=== PATIENT | male | born 1965 | race Caucasian/White ===

== ENCOUNTER → 2017-05-18 | Outpatient (CLI) | payer MEDICARE, OTHER ==
--- NOTE | 2017-05-19 09:30 | XR ---
EXAMINATION TYPE: XR shoulder complete LT DATE OF EXAM: 05/18/2017 CLINICAL HISTORY: Left shoulder pain after injury. TECHNIQUE: Three views of the left shoulder are obtained. COMPARISON: None. FINDINGS: There is no acute fracture/dislocation evident in the left shoulder. Well-corticated osse ous fragment is seen at the acromioclavicular joint favored to represent sequela of old injury or art hropathy, however small os acromiale is also possible. Mild acromio clavicular arthropathy is demonst rated as marginal osteophytes, capsular hypertrophy and subchondral sclerosis. Bony irregularity is s een at the greater tuberosity from enthesopathy. Calcifications of the distal insertional aspect of t he rotator cuff are faint and may relate to calcific tendinosis. The visualized ribs are intact and u nremarkable. IMPRESSION: 1. There is no acute fracture or dislocation in the left shoulder. 2. Well-corticated osseous fragment at the distal clavicle favored to represent sequela of arthropath y or prior injury of however small os acromiale is also possible. 3. Mild acromioclavicular arthropathy and and enthesopathy at the rotator cuff insertion. Additionall y faint calcifications at the distal insertion of the rotator cuff may relate to calcific tendinosis.
== END ==
LOC: RADXRMAIN 15:13
PROVIDERS: ATTEND Family Medicine
DX: M19.012 Primary osteoarthritis, left shoulder (principal)

== ENCOUNTER → 2017-07-05 | Outpatient (CLI) | payer MEDICARE, OTHER ==
--- NOTE | 2017-07-05 14:49 | XR ---
EXAMINATION TYPE: XR cervical spine comp DATE OF EXAM: 07/05/2017 COMPARISON: NONE HISTORY: 52-year-old male with neck pain after shoveling snow TECHNIQUE: 5 views FINDINGS: Uncovertebral joint and facet arthropathy especially mid to lower cervical spine. There is moderate d iscussion plate degenerative change variably, particularly at C6-C7 with there is posterior disc ossi fied complex also present. Suggestion of a trace grade 1 retrolisthesis at C4-C5. Otherwise, preserved alignment of the cervical spine. On the left, there is mild to moderate bony spondylotic neural foraminal narrowing at C4-C5 and C6-C7 . On the right, there is more moderate neural foraminal narrowing at C4-C5 and mild at C6-C7. Normal odontoid view. IMPRESSION: 1. Moderate spondylotic change. There is grade 1 retrolisthesis at C4-C5 likely on a degenerative bas is. 2. Variable mild to moderate neuroforaminal stenoses as outlined above, particularly at C4-C5 and C6- C7.
== END | disposition home or self-care (01) ==
LOC: RADXRMAIN 14:10
PROVIDERS: ATTEND Family Medicine
DX: M99.71 Connective tissue and disc stenosis of intervertebral foramina of cervical region (principal); M43.12 Spondylolisthesis, cervical region; M47.812 Spondylosis without myelopathy or radiculopathy, cervical region
CPT/HCPCS: 72050

== ENCOUNTER 2017-09-05 05:07 | Emergency (ER) | payer MEDICARE, OTHER ==
[2017-09-05 05:14] VITALS: BP 137/80; PULSE 67; RESP 16; TEMP 97.4
[2017-09-05] MEDS ORDERED: OXYMETAZOLINE 0.05% NASL SPRAY 1 SPRAY BOTTLE NASAL STA (05:30)
--- NOTE | 2017-09-05 05:32 | ED ---
URI HPI - General Chief Complaint: Upper Respiratory Infection Stated Complaint: cough Time Seen by Provider: 09/05/17 05:16 Source: patient Mode of arrival: ambulatory Limitations: no limitations - History of Present Illness Initial Comments: This patient is a 52-year-old man who presents to be a value for cough and congestion. The patient states that "I have a bad cold." He states the symptoms started Sunday night. He is having a little bit of nonproductive cough and he states that the main thing was that over the course of tonight he was not able to breathe well because of nasal congestion. Things seem to be worse when he is trying to lie down. He denies any chest symptoms, including no chest congestion, no shortness of breath. He has not noted fevers chills. MD Complaint: cough, nasal congestion Onset/Timin -: days(s) Severity: moderate Consistency: constant Improves With: nothing Worsens With: nothing Context: sick contacts Associated Symptoms: nasal congestion, cough Treatments Prior to Arrival: none - Related Data Previous Rx's Medication Instructions Recorded Pseudoephedrine HCl 120 mg PO Q12H PRN #20 tablet.er 09/05/17 [Pseudoephedrine ER] Allergies Allergy/AdvReac Type Severity Reaction Status Date / Time No Known Allergies Allergy Verified 09/05/17 05:14 Review of Systems ROS Statement: Those systems with pertinent positive or pertinent negative responses have been documented in the HPI. ROS Other: All systems not noted in ROS Statement are negative. Constitutional: Denies: fever, chills Eyes: Denies: eye pain ENT: Reports: congestion. Denies: ear pain, throat pain, hearing loss Respiratory: Reports: cough. Denies: dyspnea, wheezes Cardiovascular: Denies: chest pain Neurological: Denies: headache Past Medical History Past Medical History: Hypertension Additional Past Medical History / Comment(s): rotator cuff injury History of Any Multi-Drug Resistant Organisms: None Reported Past Surgical History: Orthopedic Surgery Past Psychological History: No Psychological Hx Reported Smoking Status: Never smoker Past Alcohol Use History: None Reported Past Drug Use History: Marijuana General Exam Limitations: no limitations General appearance: alert, in no apparent distress Head exam: Present: atraumatic, normocephalic Eye exam: Present: normal appearance, PERRL, EOMI. Absent: scleral icterus, conjunctival injection ENT exam: Present: mucous membranes moist, TM's normal bilaterally, normal external ear exam, other (Clear nasal discharge bilaterally.) Neck exam: Present: full ROM. Absent: tenderness Respiratory exam: Present: normal lung sounds bilaterally. Absent: respiratory distress, wheezes, rales, rhonchi, stridor Cardiovascular Exam: Present: regular rate, normal rhythm, normal heart sounds. Absent: systolic murmur, diastolic murmur, rubs, gallop Course Vital Signs 09/05/17 05:10 Temperature 97.4 F L Pulse Rate 67 Respiratory 16 Rate Blood Pressure 137/80 O2 Sat by Pulse 98 Oximetry Disposition Clinical Impression: Upper respiratory infection Disposition: HOME SELF-CARE Condition: Good Instructions: Upper Respiratory Infection (ED) Prescriptions: Pseudoephedrine HCl [Pseudoephedrine ER] 120 mg PO Q12H PRN #20 tablet.er PRN Reason: Congestion Referrals: Salvatore Wright DO [Primary Care Provider] - 1-2 days
== END 2017-09-05 05:42 | disposition home or self-care (01) ==
LOC: EC 05:07
DX: J06.9 Acute upper respiratory infection, unspecified (principal)
CPT/HCPCS: 99283

== ENCOUNTER 2019-09-29 13:22 | Emergency (ER) | payer MEDICARE, OTHER ==
[2019-09-29] MEDS ORDERED: ACET/COD 300 MG/30 MG STARTER PACK 6 TAB BTL PO STA (13:52)
--- NOTE | 2019-09-29 13:53 | ED ---
General Adult HPI - General Chief complaint: Extremity Injury, Upper Stated complaint: lt arm pain Time Seen by Provider: 09/29/19 13:33 Source: patient Mode of arrival: ambulatory Limitations: no limitations - History of Present Illness Initial comments: Dictation was produced using [employer] dictation software. please excuse any grammatical, word or spelling errors. Chief Complaint: 54-year-old male with past medical history of bilateral hand surgeries on disability presents with left elbow pain. History of Present Illness: 24-year-old male presents with left elbow pain starting around lunchtime today. Patient states that yesterday he is working on his motorcycle. States that he feels pain on his left olecranon process. Denie s any trauma or prolonged pressure on the elbow joint. Denies any fever, chills or night sweats. Patient states the pain is worse when he bends at the elbow the symptoms are relieved with elbow extension. Patient denies any constitutional symptoms. No history of diabetes. Patient has no other complaints. No radiation of symptoms. No neurologic symptoms in the hand. The ROS documented in this emergency department record has been reviewed and confirmed by me. Those systems with pertinent positive or negative responses have been documented in the HPI. All other systems are other negative and/or noncontributory. PHYSICAL EXAM: General Impression: Alert and oriented x3, not in acute distress HEENT: Normocephalic atraumatic, extra-ocular movements intact, pupils equal and reactive to light bilaterally, mucous membranes moist. Cardiovascular: Heart regular rate and rhythm, S1&S2 audible, no murmurs, rubs or gallops Chest: Lungs clear to auscultation bilaterally, no rhonchi, no wheeze, no rales Abdomen: Bowel sounds present, abdomen soft, non-tender, non-distended, no organomegaly Musculoskeletal: Pulses present and equal in all extremities, no peripheral edema Left upper extremity: Intact normal range of motion to the left shoulder and left wrist. Skin is unremarkable. There is a small 1 x 1 cm fluctuant area over the olecranon process. This site is nonerythematous and not warm. Motor: no focal deficits noted Neurological: CN II-XII grossly intact, no focal motor or sensory deficits noted Skin: Intact with no visualized rashes Psych: Normal affect and mood ED course: 54-year-old male clinical presentation consistent with olecranon bursitis. Vital signs upon arrival are within acceptable limits. Given acuity of symptoms and benign appearance of fluctuant area on the left elbow coca presentation most likely to be septic bursitis. Patient given pressure dressing. Given by mouth analgesia. Patient told to seek medical attention if his symptoms started showing signs of infection including redness, worsening pain and warmth. He understands that should these symptoms arise he should seek medical attention immediately. - Related Data Previous Rx's Medication Instructions Recorded Pseudoephedrine HCl 120 mg PO Q12H PRN #20 tablet.er 09/05/17 [Pseudoephedrine ER] Clindamycin HCl 300 mg PO Q6H 4 Days #20 cap 09/29/19 Allergies Allergy/AdvReac Type Severity Reaction Status Date / Time No Known Allergies Allergy Verified 09/05/17 05:14 Review of Systems ROS Statement: Those systems with pertinent positive or pertinent negative responses have been documented in the HPI. ROS Other: All systems not noted in ROS Statement are negative. Past Medical History Past Medical History: Hypertension Additional Past Medical History / Comment(s): rotator cuff injury History of Any Multi-Drug Resistant Organisms: None Reported Past Surgical History: Orthopedic Surgery Past Psychological History: No Psychological Hx Reported Smoking Status: Never smoker Past Alcohol Use History: None Reported Past Drug Use History: Marijuana General Exam Limitations: no limitations Course Vital Signs 09/29/19 13:27 Temperature 97.9 F Pulse Rate 102 H Respiratory 16 Rate Blood Pressure 146/82 O2 Sat by Pulse 100 Oximetry Disposition Clinical Impression: Bursitis of elbow Disposition: HOME SELF-CARE Condition: Good Additional Instructions: Today you where evaluated for bursitis of the left elbow. At this point there are no signs of infection however he should seek medical attention with signs of worsening pain, left elbow redness, left elbow warmth fever or chills night sweats. Your given a prescription for antibiotics. Please begin taking his antibiotics if there is any concern of infection and seek medical attention immediately. Youre given a prescription that was sent to your listed preferred pharmacy. Prescriptions: Clindamycin HCl 300 mg PO Q6H 4 Days #20 cap Is patient prescribed a controlled substance at d/c from ED?: No Referrals: Salvatore Wright DO [Primary Care Provider] - 1-2 days Time of Disposition: 13:52
[2019-09-29 14:20] VITALS: BP 140/78; PULSE 92; RESP 18; TEMP 98.6
== END 2019-09-29 14:19 | disposition home or self-care (01) ==
LOC: EC 13:22
DX: M70.22 Olecranon bursitis, left elbow (principal); Z98.890 Other specified postprocedural states; Y93.89 Activity, other specified
CPT/HCPCS: 99283

== ENCOUNTER 2020-03-10 14:37 | Emergency (ER) | payer MEDICARE, OTHER ==
[2020-03-10 14:50] VITALS: BP 125/80; PULSE 75; RESP 18; TEMP 97.3
--- NOTE | 2020-03-10 15:11 | ED ---
General Adult HPI - General Chief complaint: ENT Stated complaint: L Jaw Pain Time Seen by Provider: 03/10/20 14:52 Source: patient Mode of arrival: ambulatory Limitations: no limitations - History of Present Illness Initial comments: Dictation was produced using [employer] dictation software. please excuse any grammatical, word or spelling errors. This patient was cared for during a federal and state declared state of emergency secondary to Covid 19 Chief Complaint: 54-year-old male presents with left-sided jaw clicking. History of Present Illness: Patient 54-year-old male today he was eating lunch when he felt some clicking on his left jaw. He called his dentist who offered him not much help. Patient states along with this clicking a reports increased pain. Patient states he is unable to open his mouth all the way. Patient denies any history of jaw problems. The ROS documented in this emergency department record has been reviewed and confirmed by me. Those systems with pertinent positive or negative responses have been documented in the HPI. All other systems are other negative and/or noncontributory. PHYSICAL EXAM: General Impression: Alert and oriented x3, not in acute distress HEENT: Normocephalic atraumatic, extra-ocular movements intact, pupils equal and reactive to light bilaterally, mucous membranes moist, no malocclusion, clicking with opening and closing of the mouth. Cardiovascular: Heart regular rate and rhythm Chest: Able to complete full sentences, no retractions, no tachypnea Abdomen: abdomen soft, non-tender, non-distended, no organomegaly Musculoskeletal: Pulses present and equal in all extremities, no peripheral edema Motor: no focal deficits noted Neurological: CN II-XII grossly intact, no focal motor or sensory deficits noted Skin: Intact with no visualized rashes Psych: Normal affect and mood ED course: 54-year-old male presents with clicking of the left jaw and left jaw pain.. Signs upon arrival are within acceptable limits. Clinical presentation consistent with left TMJ arthritis. Mandibular x-rays are unremarkable. Patient given referral to ENT for outpatient care of TMJ symptoms. Patient told to eat soft diet for the time being and to take [id number] medications for symptoms when necessary. - Related Data Previous Rx's Medication Instructions Recorded Pseudoephedrine HCl 120 mg PO Q12H PRN #20 tablet.er 09/05/17 [Pseudoephedrine ER] Clindamycin HCl 300 mg PO Q6H 4 Days #20 cap 09/29/19 Allergies Allergy/AdvReac Type Severity Reaction Status Date / Time No Known Allergies Allergy Verified 03/10/20 14:50 Review of Systems ROS Statement: Those systems with pertinent positive or pertinent negative responses have been documented in the HPI. ROS Other: All systems not noted in ROS Statement are negative. Past Medical History Past Medical History: Hypertension Additional Past Medical History / Comment(s): rotator cuff injury History of Any Multi-Drug Resistant Organisms: None Reported Past Surgical History: Orthopedic Surgery Past Psychological History: No Psychological Hx Reported Past Alcohol Use History: None Reported Past Drug Use History: Marijuana General Exam Limitations: no limitations Course Vital Signs 03/10/20 14:48 Temperature 97.3 F L Pulse Rate 75 Respiratory 18 Rate Blood Pressure 125/80 O2 Sat by Pulse 98 Oximetry Disposition Clinical Impression: TMJ pain dysfunction syndrome Disposition: HOME SELF-CARE Condition: Good Instructions (If sedation given, give patient instructions): Temporomandibular Disorder (ED) Is patient prescribed a controlled substance at d/c from ED?: No Referrals: Augustin Thomson MD [STAFF PHYSICIAN] - 1-2 days Time of Disposition: 15:37
--- NOTE | 2020-03-10 15:35 | XR ---
Mandible HISTORY: Malocclusion 5 views of the mandible Bone mineralization is maintained. No fracture or dislocation. Alignment is maintained. Degenerative disc changes noted incidentally in the cervical spine. IMPRESSION: MRI may be of benefit to evaluate for temporomandibular joint dysfunction
== END 2020-03-10 16:05 | disposition home or self-care (01) ==
LOC: EC 14:37
DX: M26.629 Arthralgia of temporomandibular joint, unspecified side (principal); I10 Essential (primary) hypertension
CPT/HCPCS: 70110; 99283

== ENCOUNTER → 2021-04-01 | Outpatient (CLI) | payer MEDICARE, OTHER | END | disposition home or self-care (01) | LOC: RADMRIMAIN 09:54 | PROVIDERS: ATTEND Family Medicine | DX: Z53.9 Procedure and treatment not carried out, unspecified reason (principal) ==

== ENCOUNTER 2022-08-09 02:06 | Emergency (ER) | payer MEDICARE, OTHER ==
[2022-08-09 02:12] VITALS: RESP 16
[2022-08-09] MEDS ORDERED: NEOMYCIN-POLYMYXIN-HC (3.5-10,000-10 MG) OTIC DROPS 10 ML BTL BOTH EARS STA (02:32)
[2022-08-09] MEDS ORDERED: FLUTICASONE 50MCG/SPRAY NASAL 16GM EA NOSTRIL STA (02:32)
--- NOTE | 2022-08-09 02:38 | ED ---
ENT HPI - General Chief complaint: ENT Stated complaint: Difficulty hearing, General illness Time Seen by Provider: 08/09/22 02:19 Source: patient, RN notes reviewed Mode of arrival: ambulatory Limitations: no limitations - History of Present Illness Initial comments: This is a 57-year-old male who presents to the emergency department for bilateral ear pain and hearing loss. States that over the last 1-2 weeks, he has had increasing ear pain, which is worse when he tries to press on the outside of the ear. Over the last day, he has started to notice hearing loss and states that his hearing sounds muffled. Denies any fevers, chills, sore throat, cough, dyspnea, chest pain, palpitations, abdominal pain, nausea, vomiting, diarrhea, back pain, or headaches. MD complaint: ear pain, other (Hearing loss) Location: R ear, L ear - Related Data Previous Rx's Medication Instructions Recorded Pseudoephedrine HCl 120 mg PO Q12H PRN #20 tablet.er 09/05/17 [Pseudoephedrine ER] clindamycin HCL [Clindamycin HCl] 300 mg PO Q6H 4 Days #20 cap 09/29/19 predniSONE 50 mg PO DAILY 5 Days #5 tab 08/09/22 Allergies Allergy/AdvReac Type Severity Reaction Status Date / Time No Known Allergies Allergy Verified 08/09/22 02:08 Review of Systems ROS Statement: Those systems with pertinent positive or pertinent negative responses have been documented in the HPI. ROS Other: All systems not noted in ROS Statement are negative. Past Medical History Past Medical History: Hypertension Additional Past Medical History / Comment(s): rotator cuff injury History of Any Multi-Drug Resistant Organisms: None Reported Past Surgical History: Orthopedic Surgery Past Psychological History: No Psychological Hx Reported Smoking Status: Never smoker Past Alcohol Use History: None Reported Past Drug Use History: None Reported, Marijuana General Exam Limitations: no limitations General appearance: alert, in no apparent distress Head exam: Present: atraumatic, normocephalic, normal inspection ENT exam: Present: TM's normal bilaterally, other (Mild ear canal erythema bilaterally. No movement of the TMs with forced Valsalva) Respiratory exam: Present: normal lung sounds bilaterally. Absent: respiratory distress, wheezes, rales, rhonchi, stridor Cardiovascular Exam: Present: regular rate, normal rhythm, normal heart sounds. Absent: systolic murmur, diastolic murmur, rubs, gallop, clicks Neurological exam: Present: alert, oriented X3, CN II-XII intact Psychiatric exam: Present: normal affect, normal mood Skin exam: Present: warm, dry, intact, normal color. Absent: rash Course Vital Signs 08/09/22 08/09/22 02:08 03:41 Temperature 97.6 F 98 F Pulse Rate 54 L 59 L Respiratory 16 16 Rate Blood Pressure 126/89 122/82 O2 Sat by Pulse 99 100 Oximetry Medical Decision Making - Medical Decision Making This is a 57-year-old male who presents to the emergency department for hearing loss. Was pt. sent in by a medical professional or institution? @ -No Did you speak to anyone other than the patient for history? @ -No Did you review nursing and triage notes? @ -Disagree with the aspect of the patient's back pain, he is not currently complaining of any back pain. Additionally, he states that the ear pain has been present for at least a week, not since yesterday. Were old charts reviewed? @ -No Differential Diagnosis? @ -Differential ear pain: Otitis media, otitis externa, eustachian tube dysfunction, mastoiditis, malignancy, acoustic neuroma, trauma, this is not meant to be an all-inclusive list. What testing was considered but not performed? (CT, X-rays, U/S, labs)? Why? @ -None What meds were considered but not given? Why? @ -None Did you discuss the management of the patient with other professionals? @ -No Did you reconcile home meds? @ -No Was smoking cessation discussed for >3mins.? @ -No Was critical care preformed (if so, how long)? @ -No Were there social determinants of health that impacted care today? How? (Homelessness, low income, unemployed, alcoholism, drug addiction, transportation, low edu. Level, literacy, decrease access to med. care, retirement, rehab)? @ -Yes, the patient is homeless, causing him to be exposed to the elements, which may be contributing to his symptoms. Additionally, this reduces his access to medication and being able to crop picker his prescriptions. Was there de-escalation of care discussed even if they declined? (Discuss DNR or withdrawal of care, Hospice)? @ -No What co-morbidities impacted this encounter? (DM, HTN, Smoking, COPD, CAD, Cancer, CVA, Hep., AIDS, mental health diagnosis, sleep apnea, morbid obesity)? @ -None Was patient admitted / discharged? @ -Discharged. Findings most consistent with a eustachian tube dysfunction. Given the mild canal erythema and tenderness to palpation of the tragus, will treat the patient for an otitis externa as well. He was given Flonase nasal spray and Cortisporin ear drops in the emergency department for treatment of these conditions. Dosing instructions were reviewed. He was also given IM Solu-Medrol to further help with problems related to the eustachian tube dysfunction. Additional 5 day course of prednisone was prescribed as well. Advised that it may take a couple of days before he notices symptomatic improvement. We also discussed that an aner-nai-[id number] antihistamine may also be beneficial to his symptoms. Tylenol and ibuprofen advised for any additional discomfort. Undiagnosed new problem with uncertain prognosis? @ -None Drug Therapy requiring intensive monitoring for toxicity (Heparin, Nitro, Insulin, Cardizem)? @ -None Were any procedures done? @ -None Diagnosis/symptom? @ -Eustachian tube dysfunction Acute, or Chronic, or Acute on Chronic? @ -Acute Uncomplicated (without systemic symptoms) or Complicated (systemic symptoms)? @ -Uncomplicated Side effects of treatment? @ -None Exacerbation, Progression, or Severe Exacerbation] @ -Not applicable Poses a threat to life or bodily function? @ -No Diagnosis/symptom? @ -Otitis externa Acute, or Chronic, or Acute on Chronic? @ -Acute Uncomplicated (without systemic symptoms) or Complicated (systemic symptoms)? @ -Uncomplicated Side effects of treatment? @ -None Exacerbation, Progression, or Severe Exacerbation] @ -Not applicable Poses a threat to life or bodily function? @ -No Return precautions reviewed in depth, the patient is instructed to return to the emergency department with any new, worsening, or concerning symptoms. Patient verbalized understanding. This case was discussed in detail with the attending ED physician, Dr. Benz. Presentation, findings, and treatment plan discussed in detail as well. Disposition Clinical Impression: Eustachian tube dysfunction, Otitis externa Disposition: HOME SELF-CARE Instructions (If sedation given, give patient instructions): Hearing Loss (ED), Earache (ED) Additional Instructions: Return to the emergency department with any new, worsening, or concerning symptoms. Use the fluticasone nasal spray as 2 sprays in each nostril once daily. The eardrops can be used as 4 drops to each ear 4 times daily for 7 days. The prednisone will be taken once daily for the next 5 days. Follow up with your primary care provider in 1-2 days. Prescriptions: predniSONE 50 mg PO DAILY 5 Days #5 tab Is patient prescribed a controlled substance at d/c from ED?: No Referrals: Salvatore Wright DO [Primary Care Provider] - 1-2 days
[2022-08-09] MEDS ORDERED: predniSONE 50 MG TAB PO STA (02:50)
[2022-08-09] MEDS ORDERED: methylPREDNISolone SOD SUCCI 125 MG/2 ML VIAL IM ONE (02:51)
[2022-08-09 03:43] VITALS: BP 122/82; PULSE 59; TEMP 98
== END 2022-08-09 03:43 | disposition home or self-care (01) ==
LOC: EC 02:06
DX: H69.93 Unspecified Eustachian tube disorder, bilateral (principal); I10 Essential (primary) hypertension
CPT/HCPCS: 99283; 96372; J2930

== ENCOUNTER → 2023-09-27 | Outpatient (CLI) | payer MEDICARE ==
--- NOTE | 2023-09-28 04:45 | CT ---
EXAMINATION TYPE: CT cervical spine wo con DATE OF EXAM: 09/27/2023 COMPARISON: MRI 2013. Cervical spine x-ray 2017 HISTORY: CHRONIC NECK PAIN. NAUSEA AND DIZZY WHEN LOOKING DOWN. CT DLP: 488 mGycm. Automated Exposure Control for Dose Reduction was Utilized. TECHNIQUE: CT scan of the cervical spine is obtained without contrast, axial images are obtained, sa gittal and coronal reformatted images are also reviewed. FINDINGS: Cervical spine is visualized in its entirety from C1 through upper thoracic levels, demonst rates slight grade 1 anterolisthesis of C3 on C4 and grade 1 retrolisthesis C4 on C5 without evidence of acute fracture or dislocation. Prevertebral soft tissue appears within normal limits. The C1-C2 articulation is within normal limits on the coronal images. Vertebral body heights are within normal limits. There is mild disc space narrowing at C2-C3 mild to moderate disc space narrowing at C4-C5 l evel. There is moderate disc space narrowing at C6-C7 level and mild to moderate spurring. Review of axial images at C2-C3 level appear within normal limits. Axial images at C3-C4 levels with spondylolisthesis with uncovertebral facet degenerative change more prominent on the right causing moderate to advanced right-sided neural foraminal narrowing. Central disc protrusion mildly effaces anterior thecal sac. Axial images at C4-C5 level shows marginal spurring causing moderate right greater than left bilatera l neural foraminal narrowing. There is central disc protrusion mildly effacing the anterior thecal sa c. Axial images at C5-C6 level shows central disc protrusion effacing the anterior thecal sac nearly to the ventral surface of spinal cord and uncovertebral facet degenerative change causing [id number] te right greater than left bilateral neural foraminal narrowing. Axial images at C6-C7 levels with posterior spur disc complex effacing anterior thecal sac and causin g [id number] right greater than left bilateral foraminal narrowing. Axial images at C7-T1 level appear within normal limits. IMPRESSION: Multilevel spondylolisthesis and degenerative change in the cervical spine as detailed ab elissae.
== END | disposition home or self-care (01) ==
LOC: RADCTMAIN 13:16
PROVIDERS: ATTEND Physical Medicine & Rehabilitation Pain Medicine
DX: M43.12 Spondylolisthesis, cervical region (principal); M47.812 Spondylosis without myelopathy or radiculopathy, cervical region; M50.222 Other cervical disc displacement at C5-C6 level
CPT/HCPCS: 72125

== ENCOUNTER 2024-03-20 18:26 | Emergency (ER) | payer MEDICARE, OTHER ==
--- NOTE | 2024-03-20 18:35 | ED ---
Wound/Laceration HPI - General Source: patient, RN notes reviewed Mode of arrival: ambulatory Limitations: no limitations <Rebecca Velázquez - Last Filed: 03/20/24 18:34> - General Source: patient Mode of arrival: ambulatory Limitations: no limitations <Kira Reynolds - Last Filed: 03/20/24 20:27> - General Chief Complaint: Wound/Laceration Stated Complaint: wrist lac Time Seen by Provider: 03/20/24 18:34 - History of Present Illness Initial Comments: Note: 58-year-old male presented to ER with chief complaint of laceration. Patient accidentally cut himself with a music box mechanic on left wrist 20 minutes prior to arrival. Bleeding is controlled at this time. Tetanus is up-to-date. Patient denies any limited range of motion of fingers. No other injuries. (Rebecca Velázquez) This is a 58-year-old male who presents to the emergency department for a laceration. States that he accidentally cut himself with a utility knife on the left wrist just before arrival. Tetanus vaccine is up-to-date. States that the pain is very bothersome. Not taking any blood thinners and was able to control the bleeding. (Kira Reynolds) - Related Data Previous Rx's Medication Instructions Recorded Pseudoephedrine HCl 120 mg PO Q12H PRN #20 tablet.er 09/05/17 [Pseudoephedrine ER] clindamycin HCL [Clindamycin HCl] 300 mg PO Q6H 4 Days #20 cap 09/29/19 predniSONE 50 mg PO DAILY 5 Days #5 tab 08/09/22 Allergies Allergy/AdvReac Type Severity Reaction Status Date / Time No Known Allergies Allergy Verified 08/09/22 02:08 Review of Systems ROS Other: All systems not noted in ROS Statement are negative. <Rebecca Velázquez - Last Filed: 03/20/24 18:34> ROS Other: All systems not noted in ROS Statement are negative. <Kira Reynolds - Last Filed: 03/20/24 20:27> ROS Statement: Those systems with pertinent positive or pertinent negative responses have been documented in the HPI. Past Medical History Past Medical History: Hypertension Additional Past Medical History / Comment(s): rotator cuff injury History of Any Multi-Drug Resistant Organisms: None Reported Past Surgical History: Orthopedic Surgery Past Psychological History: No Psychological Hx Reported Smoking Status: Never smoker Past Alcohol Use History: None Reported Past Drug Use History: None Reported, Marijuana <Rebecca Velázquez - Last Filed: 03/20/24 18:34> General Exam <Rebecca Velázquez - Last Filed: 03/20/24 18:34> Limitations: no limitations General appearance: alert, in no apparent distress Respiratory exam: Present: normal lung sounds bilaterally. Absent: respiratory distress, wheezes, rales, rhonchi, stridor Cardiovascular Exam: Present: regular rate, normal rhythm, normal heart sounds. Absent: systolic murmur, diastolic murmur, rubs, gallop, clicks Neurological exam: Present: alert, oriented X3, CN II-XII intact Psychiatric exam: Present: normal affect, normal mood Skin exam: Present: other (6 to 7 cm laceration to the dorsal aspect of the left wrist with visible subcutaneous tissue) <Kira Reynolds - Last Filed: 03/20/24 20:27> - General Exam Comments Initial Comments: Visual Physical Exam Vital signs reviewed General: Well-appearing, nontoxic, no acute distress. Head: Normocephalic, atraumatic Eyes: PERRLA, EOMI ENT: Airway patent Chest: Nonlabored breathing Skin: No visual rash, normal skin tone, 7 cm horizontal laceration to left wrist splint 2 inches from wrist joint Neuro: Alert and oriented 3 Musculoskeletal: No gross abnormalities (Rebecca Velázquez) Course Vital Signs 03/20/24 03/20/24 18:33 19:49 Temperature 98 F Pulse Rate 84 66 Respiratory 20 16 Rate Blood Pressure 155/86 155/81 O2 Sat by Pulse 98 97 Oximetry Procedures - Laceration Laceration #1 Consent Obtained: verbal consent Indication: laceration Site: other (left wrist) Size (cm): 7 Description: linear Depth: simple, single layer Anesthetic Used: lidocaine 1% Anesthesia Technique: local infiltration Amount (mls): 5 Pre-repair: wound explored, irrigated extensively Type of Sutures: nylon Size of Sutures: 4-0 Number of Sutures: 12 Technique: simple, interrupted <Kira Reynolds - Last Filed: 03/20/24 20:27> Medical Decision Making <Rebecca Velázquez - Last Filed: 03/20/24 18:34> <Kira Reynolds - Last Filed: 03/20/24 20:27> - Medical Decision Making I performed the quick note portion of this chart. Electronically signed by Rebecca Velázquez PA-C (Rebecca Velázquez) This is a 58 year old male who presents to the emergency department for a laceration. Was pt. sent in by a medical professional or institution? @ -No Did you speak to anyone other than the patient for history? @ -No Did you review nursing and triage notes? @ -Yes, and I agree, it is accurate with regards to the patient's symptoms. Were old charts reviewed? @ -No Differential Diagnosis? @ -Differential Laceration: Laceration, abrasion, burn, insect bite, this is not meant to be an all- inclusive list. EKG interpreted by me (3pts min.)? @ -Not obtained X-rays interpreted by me (1pt min.)? @ -Not obtained CT interpreted by me (1pt min.)? @ -Not obtained U/S interpreted by me (1pt. min.)? @ -Not obtained What testing was considered but not performed? (CT, X-rays, U/S, labs)? Why? @ -None What meds were considered but not given? Why? @ -None Did you discuss the management of the patient with other professionals? @ -No Did you reconcile home meds? @ -No Was smoking cessation discussed for >3mins.? @ -No Was critical care preformed (if so, how long)? @ -No Were there social determinants of health that impacted care today? How? (Homelessness, low income, unemployed, alcoholism, drug addiction, transportation, low edu. Level, literacy, decrease access to med. care, penitentiary, rehab)? @ -No Was there de-escalation of care discussed even if they declined? (Discuss DNR or withdrawal of care, Hospice)? @ -No What co-morbidities impacted this encounter? (DM, HTN, Smoking, COPD, CAD, Cancer, CVA, Hep., AIDS, mental health diagnosis, sleep apnea, morbid obesity)? @ -None Was patient admitted / discharged? @ -Discharged. Patient's laceration was cleansed and repaired with sutures. Tetanus vaccine is already up-to-date. He is advised to return in 7 to 10 days for suture removal. Advised ibuprofen and Tylenol as needed for pain relief. Case discussed with ED attending Dr. Benz. Return precautions reviewed in depth, the patient is instructed to return to the emergency department with any new, worsening, or concerning symptoms. Patient verbalized understanding. Undiagnosed new problem with uncertain prognosis? @ -None Drug Therapy requiring intensive monitoring for toxicity (Heparin, Nitro, Insulin, Cardizem)? @ -None Were any procedures done? @ -Laceration repair with sutures Diagnosis/symptom? @ -Laceration Acute, or Chronic, or Acute on Chronic? @ -Acute Uncomplicated (without systemic symptoms) or Complicated (systemic symptoms)? @ -Uncomplicated Side effects of treatment? @ -None Exacerbation, Progression, or Severe Exacerbation] @ -Not applicable Poses a threat to life or bodily function? @ -No (Kira Reynolds) Disposition <Rebecca Velázquez - Last Filed: 03/20/24 18:34> Is patient prescribed a controlled substance at d/c from ED?: No Time of Disposition: 19:31 <Kira Reynolds - Last Filed: 03/20/24 20:27> Clinical Impression: Laceration Disposition: HOME SELF-CARE Instructions (If sedation given, give patient instructions): Care For Your Stitches (ED) Additional Instructions: Return to the emergency department with any new, worsening, or concerning symptoms and in 7-10 days for removal of the stitches. Referrals: Salvatore Wright DO [Primary Care Provider] - 1-2 days
[2024-03-20 18:38] VITALS: TEMP 98
[2024-03-20] MEDS: LIDOCAINE 1% INJ 10MG/ML (20 ML MDV) SQ ONE (18:46)
[2024-03-20] MEDS: HYDROmorphone 1 MG/ML 1 ML SYRINGE IM STA (19:08)
[2024-03-20] MEDS: KETOROLAC 15 MG/ML 1 ML VIAL IM STA (19:09)
[2024-03-20 19:50] VITALS: BP 155/81; PULSE 66; RESP 16
== END 2024-03-20 19:50 | disposition home or self-care (01) ==
LOC: EC 18:26
DX: S61.512A Laceration without foreign body of left wrist, initial encounter (principal); W26.8XXA Contact with other sharp object(s), not elsewhere classified, initial encounter
CPT/HCPCS: 99283; 96372; 12002; J2001; J1885

== ENCOUNTER 2024-03-27 13:15 | Emergency (ER) | payer MEDICARE ==
[2024-03-27 13:20] VITALS: RESP 18; TEMP 97.5
--- NOTE | 2024-03-27 13:36 | ED ---
Wound/Laceration HPI - General Chief Complaint: Wound/Laceration Stated Complaint: issues with stitches L arm Time Seen by Provider: 03/27/24 13:27 Source: patient, RN notes reviewed Mode of arrival: ambulatory Limitations: no limitations - History of Present Illness Initial Comments: 58-year-old male presents emergency department with chief complaint of wound recheck to his left wrist. He had sutures placed 7 days ago. He states he noticed that is very sensitive to touch there is been swelling no drainage but there is mild redness no fevers or chills no decreased range of motion. - Related Data Previous Rx's Medication Instructions Recorded Pseudoephedrine HCl 120 mg PO Q12H PRN #20 tablet.er 09/05/17 [Pseudoephedrine ER] clindamycin HCL [Clindamycin HCl] 300 mg PO Q6H 4 Days #20 cap 09/29/19 predniSONE 50 mg PO DAILY 5 Days #5 tab 08/09/22 Cephalexin [Keflex] 500 mg PO Q6HR #40 cap 03/27/24 Allergies Allergy/AdvReac Type Severity Reaction Status Date / Time No Known Allergies Allergy Verified 03/27/24 13:19 Review of Systems ROS Statement: Those systems with pertinent positive or pertinent negative responses have been documented in the HPI. ROS Other: All systems not noted in ROS Statement are negative. Past Medical History Past Medical History: Hypertension Additional Past Medical History / Comment(s): rotator cuff injury History of Any Multi-Drug Resistant Organisms: None Reported Past Surgical History: Orthopedic Surgery Past Psychological History: No Psychological Hx Reported Smoking Status: Never smoker Past Alcohol Use History: None Reported Past Drug Use History: Marijuana General Exam Limitations: no limitations General appearance: alert, in no apparent distress Head exam: Present: atraumatic, normocephalic, normal inspection Respiratory exam: Present: normal lung sounds bilaterally. Absent: respiratory distress, wheezes, rales, rhonchi, stridor Cardiovascular Exam: Present: regular rate, normal rhythm, normal heart sounds. Absent: systolic murmur, diastolic murmur, rubs, gallop, clicks Extremities exam: Present: other (Left wrist there is swelling, mild erythema at the wound edges with no purulent drainage mild tenderness no streaking erythema noted) Course Vital Signs 03/27/24 03/27/24 13:17 14:17 Temperature 97.5 F L 97.5 F L Pulse Rate 70 60 Respiratory 18 18 Rate Blood Pressure 151/93 142/84 O2 Sat by Pulse 99 98 Oximetry Medical Decision Making - Medical Decision Making Was pt. sent in by a medical professional or institution (TEDDY Limon, MA[employer]GER OF [employer], urgent care, hospital, or shelter...) When possible be specific @ -No Did you speak to anyone other than the patient for history (EMS, parent, family, police, friend...)? What history was obtained from this source @ -No Did you review nursing and triage notes (agree or disagree)? Why? @ -I reviewed and agree with nursing and triage notes Were old charts reviewed (outside hosp., previous admission, EMS record, old EKG, old radiological studies, urgent care reports/EKG's, shelter records)? Report findings @ -No old charts were reviewed Differential Diagnosis (chest pain, altered mental status, abdominal pain women, abdominal pain men, vaginal bleeding, weakness, fever, dyspnea, syncope, headache, dizziness, GI bleed, back pain, seizure, CVA, palpatations, mental hea lth, musculoskeletal)? @ -Wound recheck, cellulitis, infected laceration EKG interpreted by me (3pts min.). @ -None X-rays interpreted by me (1pt min.). @ -None done CT interpreted by me (1pt min.). @ -None done U/S interpreted by me (1pt. min.). @ -None done What testing was considered but not performed or refused? (CT, X-rays, U/S, labs)? Why? @ -None What meds were considered but not given or refused? Why? @ -None Did you discuss the management of the patient with other professionals (professionals i.e. TEDDY Limon, [employer] OF [employer], lab, RT, psych nurse, social problems specialist, superintendent recreation, teacher, marine safety officer, casework manager)? Give summary @ -No Was smoking cessation discussed for >3mins.? @ -No Was critical care preformed (if so, how long)? @ -No Were there social determinants of health that impacted care today? How? (Homelessness, low income, unemployed, alcoholism, drug addiction, transportation, low edu. Level, literacy, decrease access to med. care, [facility], rehab)? @ -No Was there de-escalation of care discussed even if they declined (Discuss DNR or withdrawal of care, Hospice)? DNR status @ -No What co-morbidities impacted this encounter? (DM, HTN, Smoking, COPD, CAD, Cancer, CVA, ARF, Chemo, Hep., AIDS, mental health diagnosis, sleep apnea, morbid obesity)? @ -None Was patient admitted / discharged? Hospital course, mention meds given and route, prescriptions, significant lab abnormalities, going to OR and other pertinent info. @ -Discharge patient had presented for wound recheck patient does have mild changes for concern for infection will start on Keflex will follow-up for recheck. Undiagnosed new problem with uncertain prognosis? @ -No Drug Therapy requiring intensive monitoring for toxicity (Heparin, Nitro, Insulin, Cardizem)? @ -No Were any procedures done? @ -No Diagnosis/symptom? @ -Infected laceration Acute, or Chronic, or Acute on Chronic? @ -Acute Uncomplicated (without systemic symptoms) or Complicated (systemic symptoms)? @ -Uncomplicated Side effects of treatment? @ -No Exacerbation, Progression, or Severe Exacerbation? @ -No Poses a threat to life or bodily function? How? (Chest pain, [place], [place], pneumonia, PE, COPD, DKA, ARF, appy, cholecystitis, CVA, Diverticulitis, Homicidal, Suicidal, threat to staff... and all critical care pts) @ -No Disposition Clinical Impression: Infected laceration Disposition: HOME SELF-CARE Condition: Stable Instructions (If sedation given, give patient instructions): Care For Your Stitches (ED) Additional Instructions: Please return to the Emergency Department if symptoms worsen or any other concerns. Prescriptions: Cephalexin [Keflex] 500 mg PO Q6HR #40 cap Is patient prescribed a controlled substance at d/c from ED?: No Referrals: Salvatore Wright DO [Primary Care Provider] - 1-2 days Time of Disposition: 13:34
[2024-03-27] MEDS: BACITRACIN OINT 1 EACH PACKET TOPICAL ONE (14:01)
[2024-03-27 14:20] VITALS: BP 142/84; PULSE 60
== END 2024-03-27 14:20 | disposition home or self-care (01) ==
LOC: EC 13:15
CPT/HCPCS: 99282